=== PATIENT | female | born 1995 | race African-American/Black ===

== ENCOUNTER 2020-10-04 00:37 | Emergency (ER) | payer SELFPAY ==
[2020-10-04 00:40] VITALS: BP 141/73; PULSE 109; RESP 20; TEMP 36.5; O2SAT 100; BMI 19.3
[2020-10-04] MEDS: Lidocaine HCl 1%/Epi 1:100,000 20 ML VIAL INFILTRATI (00:51)
[2020-10-04] MEDS: Morphine Sulfate 2 MG/ML CARTRIDGE IM (00:58)
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
[2020-10-04] MEDS: Diphth,Pertus(ACell),Tet Adult 0.5 ML SYRINGE IM (02:13)
== END 2020-10-04 02:29 | disposition home or self-care (01) ==
PROVIDERS: Emergency Provider Emergency Medicine
DX: S81.811A Laceration without foreign body, right lower leg, initial encounter (principal); S71.111A Laceration without foreign body, right thigh, initial encounter; W26.0XXA Contact with knife, initial encounter; Y93.9 Activity, unspecified; Y92.512 Supermarket, store or market as the place of occurrence of the external cause; Y99.9 Unspecified external cause status; Z79.899 Other long term (current) drug therapy
CPT/HCPCS: 12035; 90471; 90715; 96372; 99283; 99284; J2270

== ENCOUNTER 2020-10-14 19:26 | Emergency (ER) | payer SELFPAY ==
[2020-10-14 19:51] VITALS: BP 110/57; PULSE 85; RESP 16; TEMP 36.2; O2SAT 99; BMI 20.9
--- NOTE | 2020-10-14 20:52 | ED.WOUNDLAC ---
HPI - Wound/Laceration General Chief Complaint: Wound/Laceration Stated Complaint: infected wound Source: patient Mode of arrival: ambulatory Limitations: no limitations History of Present Illness HPI narrative: Patient presents ED for evaluation of right thigh. Patient states she had sutures removed from right thigh removed by PCP and then noticed some wound dehiscences. Patient states also mild yellow discharge from wound. Patient states no fever, chills, redness, body aches, nausea, vomiting. Patient states no new trauma. Related Data Previous Rx's Medication Instructions Recorded tramadol 50 mg tablet 50 mg PO TID PRN #10 tab 10/04/20 cephalexin 500 mg capsule 500 mg PO QID #28 cap 10/14/20 Allergies Allergy/AdvReac Type Severity Reaction Status Date / Time peanut Allergy Anaphylaxis Verified 10/14/20 19:57 Review of Systems Review of Systems: Yes all other systems are reviewed and are negative Constitutional: Constitutional: Reports as per HPI and Reports no additional constitutional complaints Eyes: Eyes: Reports as per HPI and Reports no additional eye complaints ENT: Reports system reviewed and no additional complaints, except as documented and Reports as per HPI Cardiovascular: Cardiovascular: Reports as per HPI and Reports no additional cardiovascular complaints Respiratory: Respiratory: Reports as per HPI and Reports no additional respiratory complaints Gastrointestinal: Gastrointestinal: Reports as per HPI and Reports no additional gastrointestinal complaints Genitourinary: Genitourinary: Reports no additional female genitourinary complaints and Reports as per HPI Musculoskeletal: Musculoskeletal: Reports no additional musculoskeletal complaints and Reports as per HPI Comments: Right thigh wound dehiscence Neurologic: Reports system reviewed and no additional complaints, except as documented and Reports as per HPI Endocrine: Endocrine: Reports no additional endocrine complaints and Reports as per HPI [facility] Past Medical History Medical History No acute medical problems Surgical History No history of previous surgery Social History Social History Advance Directives: No Advance Directives Information Provided: No Patient : No Physical Exam Vital Signs: Vital Signs: Last Vital Signs Temp 97.1 F 10/14/20 19:51 Pulse 85 10/14/20 19:51 Resp 16 10/14/20 19:51 BP 110/57 L 10/14/20 19:51 Pulse Ox 99 08/11/21 19:51 Body Mass Index 20.9 Const: General: cooperative, healthy appearing, comfortable, no acute distress, well developed, alert, awake and Physically active Orientation/consciousness: patient oriented x3 HENMT: Head: Yes normal to inspection, Yes No palpable skull fracture present, Yes normocephalic, Yes atraumatic and No abrasion Eyes: General: appearance normal, both eyes and all related structures Neck: Neck: Yes normal visual inspection and Yes full ROM Chest: Chest palpation & inspection: normal inspection of the chest and normal palpation of entire chest wall Resp: Effort & Inspection: normal respiratory effort and able to speak in complete sentences Auscultation: clear to auscultation bilaterally Cardio: Jugular venous distension: no JVD Heart sounds: S1 normal heart sound present and S2 normal heart sound present GI: Inspection: Yes normal to inspection and No abdominal wall ecchymosis Palpation (GI): Soft to palpation, not firm, nontender, no guarding and not rigid : General: No CVA tenderness and Yes no CVA tenderness Back/Spine/Pelvis: Back: no CVA tenderness, No CVA tenderness and No back tenderness Skin: General skin exam: no rashes or lesions noted and elasticity normal Neuro: General: patient oriented x3, gait normal and CN's II-XI intact bilaterally Cranial nerves: Yes CN's II-XII intact bilaterally Extrem: General: Yes normal to inspection and Yes full ROM Upper/lower leg/hip images: 1. Long linear wound with dehisence wound that is very superficial. Mild yellow drainage. Negative for any erythema or tenderness. Vascular/motor/neuro exam is intact Psych: Appearance: grossly normal, well kempt and not disheveled Course Course Course Narrative: Wound dehiscence no laceration repair indicated. Reevaluation(s) Reevaluation #1: Wound clean with sterile saline and Betadine. Steri-Strips placed. Patient will be discharged with antibiotics. Time: 21:00 MDM - Wound/Laceration MDM Narrative Medical decision making narrative: Wound dehiscence Discharge Plan Discharge Clinical Impression: Dehiscence of wound Patient Disposition: Home, Self-Care Instructions: Wound Dehiscence (ED) Additional Instructions: No indication for wound laceration repair. The Steri-Strips were placed to help with secondary healing. You will be discharged with antibiotics due to mild yellow drainage to prevent infection. Return to the ED for severe pain, redness, swelling, profuse pus discharge, foul odor, fever, chills, or any other concerning symptoms. Please follow-up with PCP Prescriptions: New cephalexin 500 mg capsule 500 mg PO QID Qty: 28 RF: 0 No Action tramadol 50 mg tablet 50 mg PO TID PRN (Reason: pain) Qty: 10 RF: 0 Interventions: ED Discharge Assessment Last Done: 10/14/20 21:07 Discharge Date/Time: 10/14/20 21:20 Print Language: [place]
== END 2020-10-14 21:20 | disposition home or self-care (01) ==
PROVIDERS: Emergency Provider Emergency Medicine
DX: T81.31XA Disruption of external operation (surgical) wound, not elsewhere classified, initial encounter (principal)
CPT/HCPCS: 99283; 99284